=== PATIENT | female | born 1985 | race Two or more races ===

== ENCOUNTER → 2024-04-24 08:05 | Outpatient (CLI) | payer OTHER | END | disposition home or self-care (01) | LOC: PRENATAL 08:05 | PROVIDERS: ATTEND Obstetrics & Gynecology Maternal & Fetal Medicine | DX: O36.80X0 Pregnancy with inconclusive fetal viability, not applicable or unspecified (principal); Z36.82 Encounter for antenatal screening for nuchal translucency; O09.519 Supervision of elderly primigravida, unspecified trimester; Z3A.12 12 weeks gestation of pregnancy ==

== ENCOUNTER 2024-06-16 08:05 | Outpatient (CLI) | payer OTHER | END 2024-06-16 08:12 | disposition home or self-care (01) | LOC: PRENATAL 08:05 | PROVIDERS: ATTEND Obstetrics & Gynecology Maternal & Fetal Medicine | DX: O44.00 Complete placenta previa NOS or without hemorrhage, unspecified trimester (principal); O09.519 Supervision of elderly primigravida, unspecified trimester; Z3A.21 21 weeks gestation of pregnancy ==

== ENCOUNTER 2024-09-09 13:34 | Outpatient (CLI) | payer OTHER | END 2024-09-09 13:35 | disposition home or self-care (01) | LOC: PRENATAL 13:34 | PROVIDERS: ATTEND Obstetrics & Gynecology Maternal & Fetal Medicine | DX: O26.849 Uterine size-date discrepancy, unspecified trimester (principal); O36.8199 Decreased fetal movements, unspecified trimester, other fetus; O09.519 Supervision of elderly primigravida, unspecified trimester; Z3A.33 33 weeks gestation of pregnancy ==

== ENCOUNTER 2024-10-08 11:49 | Outpatient (CLI) | payer OTHER ==
[2024-10-08 13:10] LABS: URINE APPEARANCE Clear; URINE BILIRRUBIN Negative (NEGATIVE); URINE BLOOD Negative; URINE COLOR Dark Yellow; URINE KETONE Trace (NEGATIVE); URINE LEUKOCYTE Small; URINE NITRATE Negative; URINE PROTEIN 30 (NEGATIVE)
[2024-10-08 13:12] LABS: BASO % 0.2 % (0.1-1.2); HEMATOCRIT 34.5 % (34.1-44.9); HEMOGLOBIN 11.4 g/dL (11.2-15.7); LYMPH # 1.49 (1.18-3.74); LYMPH % 15.2 % (19.3-53.1); MEAN CORPUSCULAR HEMOGLOBIN 29.6 pg (25.6-32.2); MONO # 1.11 (0.24-0.82); MONO % 11.3 % (4.7-12.5); NEUT # 6.92 (1.56-6.13); NEUT % 70.8 % (34.0-71.1); PLATELET COUNT 288 K/uL (163-369); RED BLOOD COUNT 3.85 M/uL (3.93-5.22); RED CELL DISTRIBUTION WIDTH 13.6 % (11.6-14.4)
[2024-10-08 13:14] LABS: URINE BACTERIA 2516.1 uL (0.0-1933); URINE EPITHELIAL CELLS 122.6 uL (0.0-38.8); URINE RBC 7.9 uL (0.0-20.8); URINE WBC 71.8 uL (0.0-23.2)
[2024-10-08 13:24] LABS: URINE GLUCOSE 100 MG/DL (NEGATIVE)
[2024-10-08 13:40] VITALS: BP 105/65
[2024-10-08] MEDS ORDERED: ACETAMINOPHEN 500 MG GEL..CAP PO PRN (13:45)
[2024-10-08 13:47] VITALS: BP 105/65
[2024-10-08 13:47] LABS: INR 0.94; PARTIAL THROMBOPLASTIN TIME 24.5 SECONDS (22.0-34.0); PROTHROMBIN TIME 10.3 SECONDS (9.0-11.5)
[2024-10-08 14:42] LABS: ALBUMIN 2.5 gm/dL (3.4-5.0); BILIRUBIN TOTAL 0.3 mg/dL (0.3-1.2); CREATININE SERUM 0.46 mg/dL (0.55-1.02); GFR 152.03; GLOBULINA 3.8 G/DL (2.4-3.5); POTASSIUM 4.29 mEq/L (3.5-5.1); TOTAL PROTEIN 6.3 gm/dL (6.4-8.2)
[2024-10-08 15:23] VITALS: BP 106/64
[2024-10-08 19:27] VITALS: BP 112/67
[2024-10-08] MEDS ORDERED: CEFAZOLIN SODIUM 1,000 MG VIAL ONE (19:28)
[2024-10-08] MEDS ORDERED: CEFAZOLIN SODIUM 1,000 MG VIAL IV SCH (21:00)
[2024-10-08 23:09] VITALS: BP 101/58
[2024-10-09 03:20] VITALS: BP 99/64
[2024-10-09 06:13] VITALS: BP 94/66; O2SAT 97
[2024-10-09 11:33] VITALS: BP 121/69; O2SAT 98
[2024-10-09 14:50] VITALS: BP 122/65
== END 2024-10-09 14:53 | disposition home or self-care (01) ==
LOC: OBS/DEL 11:49
PROVIDERS: ATTEND Student in an Organized Health Care Education/Training Program
DX: O26.893 Other specified pregnancy related conditions, third trimester (principal); O26.849 Uterine size-date discrepancy, unspecified trimester; O36.8199 Decreased fetal movements, unspecified trimester, other fetus; O41.00X0 Oligohydramnios, unspecified trimester, not applicable or unspecified; Z3A.36 36 weeks gestation of pregnancy

== ENCOUNTER 2024-10-13 18:08 | Inpatient (IN) | payer OTHER ==
[~2024-10-13] VITALS: Ht 160 cm; Wt 83.9 kg
[2024-10-13 17:47] VITALS: BP 116/76
[2024-10-13] MEDS ORDERED: CEPHALEXIN500 M1 PO (18:39)
[2024-10-13] MEDS ORDERED: PRENATABS FA T1 EACH PO (18:39)
[2024-10-13] MEDS ORDERED: CEPHALEXIN 500 MG CAPSULE PO SCH (21:00)
[2024-10-14] VITALS (8 sets, daily range): BP systolic 104–134; BP diastolic 48–69; O2SAT 98
[2024-10-14] MEDS ORDERED: MISOPROSTOL 25 MCG/4 ML GEL.W.APPL VAG ONE ×3 (10:15→19:30)
[2024-10-14] MEDS ORDERED: RINGERS SOLUTION,LACTATED 1,000 ML IV SCH (10:15)
[2024-10-14] MEDS ORDERED: MORPHINE SULFATE 4 MG/ML CARTRIDGE IV PRN (19:30)
[2024-10-15] VITALS (8 sets, daily range): BP systolic 104–132; BP diastolic 50–70
[2024-10-15] MEDS ORDERED: MISOPROSTOL 25 MCG/4 ML GEL.W.APPL VAG ONE (09:30)
[2024-10-15] MEDS ORDERED: OXYTOCIN 500 ML IV SCH (15:45)
[2024-10-15] MEDS ORDERED: CHLORHEXIDINE GLUCONATE 120 ML BOTTLE TOP ONE (22:30)
[2024-10-15] MEDS ORDERED: LIDOCAINE HCL 1% 10ML VIAL IJ ONE (22:30)
[2024-10-15] MEDS ORDERED: OXYTOCIN 1,000 ML IV SCH ×2 (22:30→23:00)
[2024-10-15] MEDS ORDERED: ERYTHROMYCIN BASE OPHT 1GM EACH TUBE OP ONE (22:30)
[2024-10-15] MEDS ORDERED: ACETAMINOPHEN 500 MG GEL..CAP PO PRN (23:00)
[2024-10-16 03:27] VITALS: BP 104/64
[2024-10-16 08:50] VITALS: BP 108/62
[2024-10-16] MEDS ORDERED: PNV,CALCIUM 72/IRON/FOLIC ACID 1 TAB TABLET PO SCH (09:00)
[2024-10-16 10:42] LABS: BASO % 0.3 % (0.1-1.2); EOS # 0.03 (0.04-0.54); EOS % 0.3 % (0.7-7.0); LYMPH # 1.18 (1.18-3.74); LYMPH % 10.4 % (19.3-53.1); MEAN PLATELET VOLUME 10.40 fl (9.4-12.4); MONO # 0.70 (0.24-0.82); MONO % 6.2 % (4.7-12.5); NEUT # 9.37 (1.56-6.13); NEUT % 82.2 % (34.0-71.1); RED CELL DISTRIBUTION WIDTH 13.8 % (11.6-14.4)
[2024-10-16 17:00] VITALS: BP 118/65
[2024-10-17 00:56] VITALS: BP 103/61
[2024-10-17 08:30] VITALS: BP 104/66
== END 2024-10-17 15:54 | disposition home or self-care (01) | DRG 806 ==
LOC: OBS/DEL 18:08 → LDR 10-14 10:01 → OB/GYN 10-14 10:01
PROVIDERS: ADMIT Obstetrics & Gynecology; ATTEND Obstetrics & Gynecology
PROC: 4A1HXCZ Monitoring of Products of Conception, Cardiac Rate, External Approach (ICD-10-PCS; 2024-10-14)
PROC: 3E0P7VZ Introduction of Hormone into Female Reproductive, Via Natural or Artificial Opening (ICD-10-PCS; 2024-10-14)
PROC: BY4FZZZ Ultrasonography of Third Trimester, Single Fetus (ICD-10-PCS; 2024-10-14)
PROC: 10E0XZZ Delivery of Products of Conception, External Approach (ICD-10-PCS; principal; 2024-10-15)
PROC: 0KQM0ZZ Repair Perineum Muscle, Open Approach (ICD-10-PCS; 2024-10-15)
PROC: 3E033VJ Introduction of Other Hormone into Peripheral Vein, Percutaneous Approach (ICD-10-PCS; 2024-10-15)
DX: O70.1 Second degree perineal laceration during delivery (principal); O41.03X0 Oligohydramnios, third trimester, not applicable or unspecified; Z37.0 Single live birth; O26.843 Uterine size-date discrepancy, third trimester; O36.8130 Decreased fetal movements, third trimester, not applicable or unspecified; Z3A.37 37 weeks gestation of pregnancy